=== PATIENT | male | born 1975 | race Caucasian/White ===

== ENCOUNTER 2018-03-04 12:59 | Outpatient (REF) | payer MEDICARE, SELFPAY ==
[2018-03-04 21:44] LABS: TSH 5.08 uIU/mL (0.358-3.74)
[2018-03-05 10:59] LABS: FREE T4 0.82 ng/dL (0.76-1.46)
== END 2018-03-04 13:19 ==
LOC: NCHCN 12:59
PROVIDERS: PCP Registered Nurse; Visit Provider Registered Nurse
DX: E03.9 Hypothyroidism, unspecified (principal)
CPT/HCPCS: 84439; 84443

== ENCOUNTER 2018-05-13 11:18 | Outpatient (REF) | payer MEDICARE, MEDICAID, SELFPAY ==
[2018-05-13 22:54] LABS: TSH 3.83 uIU/mL (0.358-3.74)
== END 2018-05-13 11:38 ==
LOC: NCHCN 11:18
PROVIDERS: PCP Registered Nurse; Visit Provider Registered Nurse
DX: E03.9 Hypothyroidism, unspecified (principal)
CPT/HCPCS: 84443

== ENCOUNTER 2018-09-22 08:48 | Outpatient (REF) | payer MEDICARE, MEDICAID, SELFPAY ==
[2018-09-22 22:40] LABS: VALPROIC ACID 78.7 ug/mL (50-100)
[2018-09-22 22:45] LABS: HCT 45.9 % (40.0-50.0); HGB 14.6 g/dL (13.5-17.5); Mean Corp. HGB Concentration 31.8 g/dL (32.0-36.0); Mean Corpuscular Hemoglobin 26.4 pg (27.0-33.0); Mean Platelet Volume 10.2 fL (8.0-11.0); Platelet Count 170 x1000/uL (130-400); RBC 5.53 m/cumm (4.50-6.00); RBC Distribution Width 14.8 % (11.8-14.1); White Blood Cell Count 4.45 k/cumm (4.4-10.8)
[2018-09-22 22:46] LABS: ALT 18 U/L (12-78); AST 18 U/L (15-37); Albumin 3.9 g/dL (3.4-5.0); Alkaline Phosphatase 60 U/L (46-116); Bilirubin, Total 0.3 mg/dL (0.2-1.0); Cholesterol 183 mg/dL (50-200); Glucose 79 mg/dL (70-100); HDL Cholesterol 72 mg/dL (40-60); LDL CHOLESTEROL 97 mg/dL (<100); Total Protein 7.8 g/dL (6.4-8.2); Triglyceride 54 mg/dL (30-150)
[2018-09-22 23:13] LABS: Hemoglobin A1C 5.3 % (4.5-6.2)
== END 2018-09-22 09:08 ==
LOC: LBN 08:48
PROVIDERS: PCP Registered Nurse; Visit Provider Psychiatry & Neurology Psychiatry
DX: Z79.899 Other long term (current) drug therapy (principal); F41.9 Anxiety disorder, unspecified
CPT/HCPCS: 80061; 80076; 82947; 83721; 85027; 80164; 83036

== ENCOUNTER 2018-11-02 11:06 | Outpatient (REF) | payer MEDICARE, MEDICAID, SELFPAY ==
[2018-11-02 20:56] LABS: VALPROIC ACID 82.4 ug/mL (50-100)
[2018-11-04 12:26] LABS: Mumps Antibody IgG Negative; Rubella IgG Ab (UVM) Negative
[2018-11-04 14:09] LABS: Measles IgG Antibody Equivocal
== END 2018-11-02 11:26 ==
LOC: NCHCN 11:06
PROVIDERS: PCP Registered Nurse; Visit Provider Registered Nurse
DX: Z01.84 Encounter for antibody response examination (principal); Z51.81 Encounter for therapeutic drug level monitoring
CPT/HCPCS: 80164; 86735; 86762; 86765

== ENCOUNTER 2019-03-10 18:23 | Outpatient (REF) | payer MEDICARE, MEDICAID, SELFPAY ==
[2019-03-10 23:03] LABS: Magnesium 1.9 mg/dL (1.8-2.4); TSH 6.52 uIU/mL (0.36-3.74)
== END 2019-03-10 18:43 ==
LOC: NCHCN 18:23
PROVIDERS: PCP Registered Nurse; Visit Provider Registered Nurse
DX: E03.9 Hypothyroidism, unspecified (principal)
CPT/HCPCS: 83735; 84443

== ENCOUNTER 2019-05-31 14:56 | Outpatient (REF) | payer MEDICARE, MEDICAID, SELFPAY ==
[2019-05-31 21:15] LABS: TSH (W/Ref FT4) 3.03 uIU/mL (0.36-3.74)
== END 2019-05-31 15:16 ==
LOC: NCHCN 14:56
PROVIDERS: PCP Registered Nurse; Visit Provider Registered Nurse
DX: E03.9 Hypothyroidism, unspecified (principal)
CPT/HCPCS: 84443

== ENCOUNTER 2019-06-07 18:12 | Outpatient (REF) | payer MEDICARE, MEDICAID, SELFPAY ==
[2019-06-07 22:31] LABS: Abs Immature Grans 0.01 k/cumm (0.0-0.09); Absolute Basophil Count 0.03 k/cumm (0.0-0.2); Absolute Eosinophil Count 0.11 k/cumm (0.0-0.7); Absolute Lymphocyte Count 1.62 k/cumm (1.2-3.4); Absolute Monocyte Count 0.71 k/cumm (0.11-0.7); Absolute Neutrophil Count 4.07 k/cumm (1.2-6.7); Basophils % 0.5; Eosinophils % 1.7; HCT 40.2 % (40.0-50.0); HGB 12.8 g/dL (13.5-17.5); Immature Grans % 0.2 %; Lymphocytes % 24.7; Mean Corp. HGB Concentration 31.8 g/dL (32.0-36.0); Mean Corpuscular Hemoglobin 26.2 pg (27.0-33.0); Mean Corpuscular Volume 82.2 fL (80-95); Mean Platelet Volume 9.4 fL (8.0-11.0); Monocytes % 10.8; Neutrophils % 62.1; Platelet Count 193 x1000/uL (130-400); RBC 4.89 m/cumm (4.50-6.00); RBC Distribution Width 13.9 % (11.8-14.1); White Blood Cell Count 6.55 k/cumm (4.4-10.8)
== END 2019-06-07 18:32 ==
LOC: NCHCN 18:12
PROVIDERS: PCP Registered Nurse; Visit Provider Registered Nurse
DX: D64.9 Anemia, unspecified (principal)
CPT/HCPCS: 85025

== ENCOUNTER 2019-06-21 13:08 | Outpatient (REF) | payer MEDICARE, MEDICAID, SELFPAY ==
[2019-06-21 21:41] LABS: HGB 13.1 g/dL (13.5-17.5); Mean Corpuscular Hemoglobin 26.3 pg (27.0-33.0); Mean Corpuscular Volume 82.2 fL (80-95); Mean Platelet Volume 10.5 fL (8.0-11.0); Platelet Count 152 x1000/uL (130-400); RBC 4.99 m/cumm (4.50-6.00); RBC Distribution Width 13.9 % (11.8-14.1); White Blood Cell Count 4.44 k/cumm (4.4-10.8)
== END 2019-06-21 13:28 ==
LOC: NCHCN 13:08
PROVIDERS: PCP Registered Nurse; Visit Provider Registered Nurse
DX: D64.9 Anemia, unspecified (principal)
CPT/HCPCS: 85027

== ENCOUNTER 2019-07-06 10:02 | Outpatient (REF) | payer MEDICARE, MEDICAID, SELFPAY ==
[2019-07-06 21:54] LABS: HCT 40.7 % (40.0-50.0); HGB 12.9 g/dL (13.5-17.5); Mean Corp. HGB Concentration 31.7 g/dL (32.0-36.0); Mean Corpuscular Hemoglobin 26.5 pg (27.0-33.0); Mean Corpuscular Volume 83.7 fL (80-95); Mean Platelet Volume 10.1 fL (8.0-11.0); Platelet Count 144 x1000/uL (130-400); RBC 4.86 m/cumm (4.50-6.00); RBC Distribution Width 14.5 % (11.8-14.1); White Blood Cell Count 4.36 k/cumm (4.4-10.8)
[2019-07-06 22:13] LABS: VALPROIC ACID 82.9 ug/mL (50-100)
[2019-07-06 22:15] LABS: Hemoglobin A1C 5.6 % (3.8-5.6)
[2019-07-06 22:16] LABS: AST 19 U/L (15-37); Albumin 3.7 g/dL (3.4-5.0); Alkaline Phosphatase 60 U/L (46-116); Calculated LDL 93 mg/dL (<100); Cholesterol 169 mg/dL (<200); Glucose 73 mg/dL (74-106); HDL Cholesterol 68 mg/dL (40-60); Total Protein 7.3 g/dL (6.4-8.2); Triglyceride 43 mg/dL (<150)
[2019-07-06 22:31] LABS: ALT 13 U/L (16-63); Bilirubin, Direct 0.08 mg/dL (0.00-0.20); Bilirubin, Total 0.3 mg/dL (0.2-1.0)
== END 2019-07-06 10:22 ==
LOC: NCHCN 10:02
PROVIDERS: Psychiatry & Neurology Psychiatry; PCP Registered Nurse; Visit Provider Registered Nurse
DX: F41.9 Anxiety disorder, unspecified (principal); Z79.899 Other long term (current) drug therapy; Z51.81 Encounter for therapeutic drug level monitoring
CPT/HCPCS: 80061; 80076; 82947; 85027; 80164; 83036

== ENCOUNTER 2020-03-16 21:29 | Outpatient (REF) | payer MEDICARE, MEDICAID, SELFPAY ==
[2020-03-20 13:25] LABS: IgA 164 mg/dL (85-499); Interpretation (See Note); Tissue Transglutaminase IgA <1.2 U/mL (<4.0)
== END 2020-03-16 21:49 ==
LOC: NCHCN 21:29
PROVIDERS: PCP Registered Nurse; Visit Provider Registered Nurse
DX: D64.9 Anemia, unspecified (principal); Z00.00 Encounter for general adult medical examination without abnormal findings
CPT/HCPCS: 82784; 83516

== ENCOUNTER 2020-05-15 16:12 | Outpatient (REF) | payer MEDICARE, MEDICAID, SELFPAY ==
[2020-05-15 21:04] LABS: ALT 18 U/L (16-63); AST 19 U/L (15-37); Albumin 3.9 g/dL (3.4-5.0); Alkaline Phosphatase 61 U/L (46-116); Bilirubin, Direct 0.05 mg/dL (0.00-0.20); Bilirubin, Total 0.3 mg/dL (0.2-1.0); Glucose 77 mg/dL (74-106); Total Protein 7.7 g/dL (6.4-8.2)
[2020-05-15 21:08] LABS: HCT 44.4 % (40.0-50.0); HGB 13.8 g/dL (13.5-17.5); MCH 25.8 pg (27.0-33.0); MCHC 31.1 % (32.0-36.0); MCV 83.1 fL (80-95); MPV 9.9 fL (8.0-11.0); Platelet Count 159 10^3/uL (130-400); RBC 5.34 10^6/uL (4.36-5.78); RDW 13.6 % (11.8-14.1); RDW-SD 41.5 fL; WBC 5.11 10^3/uL (4.4-10.8)
[2020-05-15 21:09] LABS: Hemoglobin A1C 5.2 % (<5.7)
[2020-05-15 21:14] LABS: VALPROIC ACID 88.5 ug/mL (50-100)
[2020-05-15 21:18] LABS: Calculated LDL 122 mg/dL (<100); Cholesterol 211 mg/dL (<200); HDL Cholesterol 81 mg/dL (40-60); Triglyceride 42 mg/dL (<150)
== END 2020-05-15 16:32 ==
LOC: LBN 16:12
PROVIDERS: PCP Registered Nurse; Visit Provider Psychiatry & Neurology Psychiatry
DX: F41.9 Anxiety disorder, unspecified (principal); Z79.899 Other long term (current) drug therapy; Z51.81 Encounter for therapeutic drug level monitoring
CPT/HCPCS: 80061; 80076; 82947; 85027; 80164; 83036

== ENCOUNTER 2020-10-06 13:50 | Outpatient (REF) | payer MEDICARE, MEDICAID, SELFPAY ==
[2020-10-06 13:31] LABS: HCT 42.6 % (40.0-50.0); HGB 13.4 g/dL (13.5-17.5); MCHC 31.5 % (32.0-36.0); MCV 82.6 fL (80-95); MPV 9.8 fL (8.0-11.0); Platelet Count 164 10^3/uL (130-400); RBC 5.16 10^6/uL (4.36-5.78); RDW-SD 42.2 fL; WBC 5.36 10^3/uL (4.4-10.8)
[2020-10-06 14:16] LABS: VALPROIC ACID 64.4 ug/mL (50-100)
[2020-10-06 14:37] LABS: ALT 19 U/L (16-63); AST 19 U/L (15-37); Albumin 3.7 g/dL (3.4-5.0); Alkaline Phosphatase 68 U/L (46-116); Bilirubin, Direct 0.1 mg/dL (0.0-0.2); Bilirubin, Total 0.4 mg/dL (0.2-1.0); Calculated LDL 115 mg/dL (<100); Cholesterol 197 mg/dL (<200); Glucose 81 mg/dL (74-106); HDL Cholesterol 73 mg/dL (40-60); Total Protein 7.6 g/dL (6.4-8.2); Triglyceride 49 mg/dL (<150)
[2020-10-06 14:51] LABS: Hemoglobin A1C 5.3 % (<5.7)
== END 2020-10-06 13:51 | disposition home or self-care (01) ==
LOC: LBN 13:50
PROVIDERS: PCP Registered Nurse; Visit Provider Psychiatry & Neurology Psychiatry
DX: F41.9 Anxiety disorder, unspecified (principal); Z79.899 Other long term (current) drug therapy; Z51.81 Encounter for therapeutic drug level monitoring
CPT/HCPCS: 80061; 80076; 82947; 85027; 80164; 83036

== ENCOUNTER 2021-01-12 09:39 | Outpatient (REF) | payer MEDICARE, MEDICAID, SELFPAY ==
[2021-01-12 15:06] LABS: HCT 43.2 % (40.0-50.0); HGB 13.4 g/dL (13.5-17.5); MCH 25.4 pg (27.0-33.0); MPV 9.4 fL (8.0-11.0); Platelet Count 159 10^3/uL (130-400); RBC 5.27 10^6/uL (4.36-5.78); RDW-SD 41.4 fL
[2021-01-12 16:08] LABS: VALPROIC ACID 77.8 ug/mL (50-100)
[2021-01-12 16:34] LABS: ALT 15 U/L (16-63); AST 17 U/L (15-37); Albumin 3.7 g/dL (3.4-5.0); Alkaline Phosphatase 65 U/L (46-116); Bilirubin, Total 0.2 mg/dL (0.2-1.0); Calculated LDL 120 mg/dL (<100); Cholesterol 198 mg/dL (<200); Glucose 82 mg/dL (74-106); HDL Cholesterol 67 mg/dL (40-60); TSH (W/Ref FT4) 5.44 uIU/mL (0.36-3.74); Total Protein 7.4 g/dL (6.4-8.2); Triglyceride 57 mg/dL (<150)
[2021-01-12 16:46] LABS: Hemoglobin A1C 5.5 % (<5.7)
[2021-01-12 16:53] LABS: Bilirubin, Direct 0.1 mg/dL (0.0-0.2); FREE T4 0.74 ng/dL (0.76-1.46)
== END 2021-01-12 09:40 | disposition home or self-care (01) ==
LOC: LBN 09:39
PROVIDERS: PCP Registered Nurse; Visit Provider Psychiatry & Neurology Psychiatry
DX: F41.9 Anxiety disorder, unspecified (principal); Z79.899 Other long term (current) drug therapy; Z51.81 Encounter for therapeutic drug level monitoring
CPT/HCPCS: 80061; 80076; 82947; 85027; 80164; 83036; 84439; 84443

== ENCOUNTER 2021-06-01 18:38 | Outpatient (REF) | payer MEDICARE, MEDICAID, SELFPAY ==
[2021-06-03 18:57] LABS: COVID-19 RT-PCR UVMMC Result Negative (Negative)
== END 2021-06-01 18:39 | disposition home or self-care (01) ==
LOC: NCHCN 18:38
PROVIDERS: PCP Registered Nurse; Visit Provider Registered Nurse
DX: Z20.822 Contact with and (suspected) exposure to COVID-19 (principal)
CPT/HCPCS: U0003

== ENCOUNTER 2021-07-13 16:40 | Outpatient (REF) | payer MEDICARE, MEDICAID, SELFPAY ==
[2021-07-13 20:18] LABS: Magnesium 2.1 mg/dL (1.8-2.4); TSH 3.56 uIU/mL (0.36-3.74)
== END 2021-07-13 16:41 | disposition home or self-care (01) ==
LOC: NCHCN 16:40
PROVIDERS: PCP Registered Nurse; Visit Provider Registered Nurse
DX: E03.9 Hypothyroidism, unspecified (principal); Z79.899 Other long term (current) drug therapy
CPT/HCPCS: 83735; 84443

== ENCOUNTER 2021-11-30 15:11 | Outpatient (REF) | payer MEDICARE, MEDICAID, SELFPAY ==
[2021-11-30 15:38] LABS: HGB 13.5 g/dL (13.5-17.5); MCH 25.4 pg (27.0-33.0); MCHC 31.4 % (32.0-36.0); MCV 81 fL (80-95); MPV 9.7 fL (8.0-11.0); Platelet Count 171 10^3/uL (130-400); RBC 5.31 10^6/uL (4.36-5.78); RDW 14.5 % (11.8-14.1); RDW-SD 42.5 fL; WBC 6.01 10^3/uL (4.4-10.8)
[2021-11-30 16:51] LABS: ALT 20 U/L (16-63); AST 22 U/L (15-37); Albumin 3.9 g/dL (3.4-5.0); Alkaline Phosphatase 70 U/L (46-116); Bilirubin, Total 0.3 mg/dL (0.2-1.0); Calculated LDL 128 mg/dL (<100); Cholesterol 212 mg/dL (<200); Glucose 79 mg/dL (74-106); HDL Cholesterol 73 mg/dL (40-60); Total Protein 7.5 g/dL (6.4-8.2); Triglyceride 55 mg/dL (<150)
[2021-11-30 17:13] LABS: VALPROIC ACID 86.7 ug/mL
[2021-11-30 17:19] LABS: Bilirubin, Direct 0.1 mg/dL (0.0-0.2)
[2021-11-30 17:36] LABS: Hemoglobin A1C 5.6 % (<5.7)
== END 2021-11-30 15:12 | disposition home or self-care (01) ==
LOC: LBN 15:11
PROVIDERS: PCP Registered Nurse; Visit Provider Psychiatry & Neurology Psychiatry
DX: Z79.899 Other long term (current) drug therapy (principal); F44.9 Dissociative and conversion disorder, unspecified
CPT/HCPCS: 80061; 80076; 82947; 85027; 80164; 83036

== ENCOUNTER 2022-08-26 18:09 | Outpatient (REF) | payer MEDICARE, MEDICAID, SELFPAY ==
[2022-08-26 17:25] LABS: Anion Gap 4.6 mmol/L (3-11); BUN 20 mg/dL (7-18); CO2 32.4 mmol/L (21.0-32.0); CREATININE 0.8 mg/dL (0.70-1.30); Chloride 104 mmol/L (98-107); Estimated GFR 111.92 (mL/min/1.73m2); Glucose 64 mg/dL (74-106); Sodium 141 mmol/L (136-145); TSH 2.92 uIU/mL (0.36-3.74)
== END 2022-08-26 18:10 | disposition home or self-care (01) ==
LOC: NCHCN 18:09
PROVIDERS: PCP Registered Nurse; Visit Provider Registered Nurse
DX: E03.9 Hypothyroidism, unspecified (principal)
CPT/HCPCS: 80048; 84443